=== PATIENT | female | born 1990 | race Caucasian/White ===

== ENCOUNTER 2017-04-11 18:11 | Emergency (ER) | payer MEDICAID, OTHER ==
[~2017-04-11 18:11] MED LIST: FERR200T PO; PREN1CAP PO; TERC.4%V VAGINAL
[2017-04-11 18:26] VITALS: BP 124/77; PULSE 98
[2017-04-11 18:57] LABS: BACTERIA, URINE OCC /hpf; BLOOD, URINE NEG (NEG); COMMENT (UR) CULT NOT INDICATED; CULTURE IF INDICATED CULT NOT INDICATED; GLUCOSE,URINE NEG (NEG); KETONE, URINE NEG (NEG); NITRITE,URINE NEG (NEG); PH, URINE 6.5 (5.0-8.5); SQUAMOUS EPITHELIAL CELL URINE 3 /hpf (0-5); URINE COLOR YELLOW (YELLW/STRAW)
--- NOTE | 2017-04-11 19:08 | PD ---
HPI Chief Complaint back pain Travel History International Travel<30 Days: No Contact w/Intl Traveler<30Days: No History of Present Illness HPI 26 yo @ 35w3dd with DARCY 05-13-2017 by 34 weeks ultrasound. Patient with late care initiated @ 35 weeks. She states she did not know she was until an ER visit for SOB at [facility]. There she had a pos HCG and was told she was , she was taken to L&D. She had some labs drawn and an US done which gave her this DARCY. Records requested. She had a new OB visit 2 days ago with [facility]. labs were obtained and GBS. She also reports smoking this . The FOB committed suicide March 2017 prior to her knowing of the . She Today she c/o low back pain, constant. She has not tried any medication for her back pain. She also has had diarrhea today. Uncertain of UC. No LOF, VB or discharge. Patient later states she had not felt baby move as much this afternoon. History Past Medical History Narrative Medical Asthma Obesity Prior blood transfusion Obstetric History Obstetric History x 2 Past Surgical History Narrative Surgical x 2 Family History Family History: Negative Social History Alcohol Use: No Tobacco Use: Yes Substance Abuse: No Allergies-Medications (Allergen,Severity, Reaction): Coded Allergies: Latex (Verified Allergy, Intermediate, 04/09/17) Home Meds Active Scripts Ferrous Sulfate (Feosol)200 Mg [id number] Mg PO DAILY 60 Days Ref 0 Prov:Marisol Deutsch 04/11/17 Vit W/ Fe Polysacch C (Vitafol Ultra 29-0.6-0.4-200 mg)1 Cap Cap1 Cap PO DAILY 90 Days Prov:Marisol Deutsch 04/09/17 Discontinued Scripts Vit W/ Fe Polysacch C (Vitafol Ultra 29-0.6-0.4-200 mg)1 Cap Cap Sample #3 Prov:Marisol Deutsch 04/09/17 Review of Systems General / Constitutional: No: Fever, Chills Eyes: No: Blurred Vision, Visual changes HENT: No: Headaches, Lightheadedness Cardiovascular: No: Chest Pain or Discomfort, Palpitations Respiratory: No: Cough, Short of Breath Gastrointestinal: Diarrhea, Changes in Bowel Habits, No: Nausea, Vomiting, Abdominal Pain, Constipation, Loss of Appetite Genitourinary: No: Urgency, Frequency, Dysuria, Pelvic Pain, Discharge, Vaginal Bleeding Musculoskeletal: Pain (low back pain), No: Limited ROM, Weakness, Edema Skin: No Rash, No Lesions Neurologic: No: Focal Abnormalities, Coordination Problem Physical Exam Vital Signs Date Time Temp Pulse Resp B/P Pulse Ox O2 Delivery O2 Flow Rate FiO2 04/11/17 18:26 98 124/77 Narrative GENERAL: Well-nourished, well-developed patient. SKIN: Warm and dry. HEAD: Normocephalic and atraumatic. EYES: No scleral icterus. No injection or drainage. ENT: No nasal drainage noted. Mucous membranes pink. Airway patent. NECK: trachea midline. No JVD. CARDIOVASCULAR: Regular rate and rhythm without murmurs, gallops, or rubs. RESPIRATORY: Breath sounds equal bilaterally. No accessory muscle use. ABDOMEN/GI: Abdomen soft, non-tender, no rebound, no guarding Gravid, NT TOCO: no UC FHT's: Baseline: 125 Initally minimal variability and no accelerations. After IVF met criteria for CAT I and reactive intermittently Decels: [-] EXTREMITIES: No cyanosis or edema. BACK: Nontender without obvious deformity. No CVA tenderness. NEUROLOGICAL: Awake and alert. Motor and sensory grossly within normal limits. Normal speech. Data Data Vital Signs Reviewed: Yes Orders Vital Signs (Adult) .ON ADMISSION (04/11/17 18:37) ^ Labor Status (04/11/17 18:37) Urinalysis - C+S If Indicated (04/11/17 18:37) ^ Non Stress Test (04/11/17 18:37) ^ Hydration (04/11/17 18:38) Labs Laboratory Tests Test 04/11/17 18:00 Urine Color YELLOW (YELLW/STRAW) Urine Turbidity HAZY (CLEAR) Urine pH 6.5 (5.0-8.5) Urine Specific [place] 1.018 (1.002-1.035) Urine Protein NEG mg/dL (NEG-TRACE) Urine Glucose (UA) NEG mg/dL (NEG) Urine Ketones NEG mg/dL (NEG) Urine Occult Blood NEG (NEG) Urine Nitrite NEG (NEG) Urine Bilirubin NEG (NEG) Urine Urobilinogen LESS THAN 2.0 MG/DL (LESS THAN 2.0) Urine Leukocyte Esterase TRACE (NEG) Urine RBC LESS THAN 1 /hpf (0-3) Urine WBC 4 /hpf (0-5) Urine Squamous Epithelial 3 /hpf (0-5) Cells Urine Bacteria OCC /hpf (NONE) Microscopic Urinalysis Comment CULT NOT INDICATED MDM Medical Record Reviewed: Yes Interpretation(s) US: [id number] EFW 2535gm 39th% BARBIE 19.9cm Placenta posterior, grade II-III BPP 06/11 "very active fetus" Narrative Course / MDM 35 weeks Late/Limited PNC Heavy smoker Intermittent bleeding this , last one week ago FHT reactive intermittently US 06/11 BPP, normal BARBIE, normal placenta, ++ movement IVF given for hydration Low back pain - given Tylenol No s/s PTL Prior Records from [facility] reviewed, US Preliminary UDS negative Plan D/c home Limited activity until PRESLEY on Sat, pelvic rest Increase oral hydration Repeat NST Saturday Tylenol PRN for back pain [facility] to schedule consultation, BTL (papers signed 2 days ago ) Diagnosis Diagnosis: Primary Impression: related low back pain in third trimester, antepartum Additional Impressions: Late care affecting in third trimester Tobacco smoking affecting in third trimester History of 2 sections 36 weeks gestation of Disposition: 01 DISCHARGE HOME Condition: Good Nusrat Hester MD Apr 11, 2017 19:08
[2017-04-11] MEDS ORDERED: ACETAMINOPHEN 500 MG CPLT PO ONE (19:15)
[2017-04-11] MEDS ORDERED: LACTATED RINGER'S 1000 ML INJ 1,000 ML IV SCH (20:03)
[2017-04-11 21:24] VITALS: BP 94/61; PULSE 83
[2017-04-11 21:24] LABS: AMPHETAMINE, URINE NEG (NEG); BARBITURATES, URINE NEG (NEG); COCAINE, URINE NEG (NEG)
[2017-04-11 21:30] VITALS: PULSE 18; TEMP 98.3
[2017-04-17 08:12] LABS: ECSTASY (MDMA) UR NEG (NEG); HEROIN (6-ACETYLMORPHINE) UR NEG (NEG); OBMETHADONE UR NEG (NEG); PHENCYCLIDINE URINE NEG (NEG)
[2017-04-17 08:13] LABS: BATH SALTS (MDPV) UR NEG (NEG); GABAPENTIN UR NEG (NEG); HYDROMORPHONE U NEG (NEG); K2 SPICE UR NEG (NEG); OXYCODONE (PERCODAN) NEG (NEG)
== END 2017-04-11 22:14 | disposition home or self-care (01) ==
LOC: HOBED 18:11
DX: O26.893 Other specified pregnancy related conditions, third trimester (principal); M54.5 Low back pain; O09.33 Supervision of pregnancy with insufficient antenatal care, third trimester; O99.333 Smoking (tobacco) complicating pregnancy, third trimester; O34.219 Maternal care for unspecified type scar from previous cesarean delivery; O99.213 Obesity complicating pregnancy, third trimester; Z87.09 Personal history of other diseases of the respiratory system; Z3A.35 35 weeks gestation of pregnancy
CPT/HCPCS: 59025; 76805; 76819; 80307; 81001; 96360; 99285; G0481; J7120

== ENCOUNTER 2017-04-12 12:15 | Emergency (ER) | payer MEDICAID, OTHER ==
[~2017-04-12 12:15] MED LIST changes: -TERC.4%V VAGINAL
--- NOTE | 2017-04-12 13:57 | PD ---
HPI Chief Complaint Decreased Movement Date Seen: Apr 12, 2017 Travel History International Travel<30 Days: No Contact w/Intl Traveler<30Days: No History of Present Illness HPI Patient is a 26 year old at 35-4/7 weeks gestation who presents today from [facility] for decreased movement and equivocal NST. Patient was evaluated in the OB ED last night as well for low back pain and had a BPP 8/ 8 with normal BARBIE, normal placenta, and positive movement. She denies any contractions, vaginal discharge, gush or leaking of fluid. She did have some spotting yesterday. She was late to establish care at 35 weeks gestation. History Past Medical History Narrative Medical Asthmalast inhaler use 1 year ago Obesity Obstetric History Obstetric History S/P 2 Past Surgical History Narrative Surgical 2 Family History Family History: Negative Social History Alcohol Use: No Tobacco Use: Yes (2-3 cigarettes/day) Substance Abuse: No Allergies-Medications (Allergen,Severity, Reaction): Coded Allergies: Latex (Verified Allergy, Intermediate, 04/12/17) Home Meds Active Scripts Ferrous Sulfate (Feosol)200 Mg [id number] Mg PO DAILY 60 Days Ref 0 Prov:Marisol Deutsch 04/11/17 Vit W/ Fe Polysacch C (Vitafol Ultra 29-0.6-0.4-200 mg)1 Cap Cap1 Cap PO DAILY 90 Days Prov:Marisol Deutsch 04/09/17 Discontinued Scripts Vit W/ Fe Polysacch C (Vitafol Ultra 29-0.6-0.4-200 mg)1 Cap Cap Sample #3 Prov:Marisol Deutsch 04/09/17 Review of Systems Except as stated in HPI: all other systems reviewed are Neg General / Constitutional: No: Fever, Chills Eyes: No: Visual changes HENT: No: Headaches Cardiovascular: No: Chest Pain or Discomfort Respiratory: No: Short of Breath Gastrointestinal: No: Abdominal Pain Genitourinary: Vaginal Bleeding (spotting), No: Dysuria, Pelvic Pain, Discharge Musculoskeletal: No: Edema Neurologic: No: Headache Psychiatric: No: Substance Abuse Physical Exam Narrative GENERAL: Well-nourished, well-developed patient. SKIN: Warm and dry. HEAD: Normocephalic and atraumatic. EYES: No scleral icterus. No injection or drainage. ENT: No nasal drainage noted. Mucous membranes pink. Airway patent. NECK: Supple, trachea midline. No JVD. CARDIOVASCULAR: Regular rate and rhythm without murmurs, gallops, or rubs. RESPIRATORY: Breath sounds equal bilaterally. No accessory muscle use. ABDOMEN/GI: Abdomen soft, non-tender, bowel sounds present, no rebound, no guarding Gravid to 35 weeks size GENITOURINARY: External Genitalia: intact and normal in appearance Membranes: intact Uterine Contractions: none FHT's: Category: I Baseline: 130 Reactive: + Variability: moderate Decels: none EXTREMITIES: No cyanosis or edema. BACK: Nontender without obvious deformity. No CVA tenderness. NEUROLOGICAL: Awake and alert. Motor and sensory grossly within normal limits. Normal speech. Data Data Vital Signs Reviewed: Yes MDM Medical Record Reviewed: Yes Narrative Course / MDM 24 year old at 35-4/7 weeks gestation. 1. IUP- Category I tracing, reassuring. 2. Decreased movement- Reactive NST today and 8/8 BPP yesterday, reassuring. Will discharge patient to home. Follow-up with [facility]. nigel Liz Diagnosis Diagnosis: Primary Impression: 35 weeks gestation of Additional Impression: Late care affecting in third trimester Disposition: 01 DISCHARGE HOME Condition: Stable Michelle Burch MD R2 Apr 12, 2017 13:57
== END 2017-04-12 14:15 | disposition home or self-care (01) ==
LOC: HOBED 12:15
DX: O36.8130 Decreased fetal movements, third trimester, not applicable or unspecified (principal); O09.33 Supervision of pregnancy with insufficient antenatal care, third trimester; Z3A.35 35 weeks gestation of pregnancy
CPT/HCPCS: 59025

== ENCOUNTER 2017-04-16 10:11 | Emergency (ER) | payer MEDICAID ==
[2017-04-16 10:28] VITALS: BP 112/90; PULSE 115
[2017-04-16 10:30] VITALS: RESP 18; TEMP 97.9
[2017-04-16 10:31] VITALS: BP 127/84; PULSE 111
--- NOTE | 2017-04-16 10:46 | PD ---
HPI Chief Complaint Decreased movement. Date Seen: Apr 16, 2017 (Michelle Burch MD R2) Travel History International Travel<30 Days: No Contact w/Intl Traveler<30Days: No (Michelle Burch MD R2) History of Present Illness HPI Patient is a 26 year old at 36-1/7 weeks gestation who presents today for decreased movement. She states that she is feeling the baby move less than usual today. She was seen today by [facility] where she was found to have a nonreactive NST. She denies any vaginal bleeding or discharge. No gush or leaking of fluid. Positive movement. No contractions. (Michelle Burch MD R2) History Past Medical History Narrative Medical Asthmalast inhaler use 1 year ago Obesity (Michelle Burch MD R2) Obstetric History Obstetric History S/P 2 (Michelle Burch MD R2) Past Surgical History Narrative Surgical 2 (Michelle Burch MD R2) Family History Family History: Negative (Michelle Burch MD R2) Social History Alcohol Use: No Tobacco Use: Yes (2-3 cigarettes/day) Substance Abuse: No (Michelle Burch MD R2) Allergies-Medications (Allergen,Severity, Reaction): Coded Allergies: Latex (Verified Allergy, Intermediate, 04/16/17) Home Meds Active Scripts Ferrous Sulfate (Feosol)200 Mg [id number] Mg PO DAILY 60 Days Ref 0 Prov:Marisol Deutsch 04/11/17 Vit W/ Fe Polysacch C (Vitafol Ultra 29-0.6-0.4-200 mg)1 Cap Cap1 Cap PO DAILY 90 Days Prov:Marisol Deutsch 04/09/17 Discontinued Scripts Vit W/ Fe Polysacch C (Vitafol Ultra 29-0.6-0.4-200 mg)1 Cap Cap Sample #3 Prov:Marisol Deutsch 04/09/17 Review of Systems Except as stated in HPI: all other systems reviewed are Neg General / Constitutional: No: Fever, Chills Eyes: No: Visual changes HENT: No: Headaches Cardiovascular: No: Chest Pain or Discomfort Respiratory: No: Short of Breath Gastrointestinal: No: Abdominal Pain Genitourinary: No: Pelvic Pain, Discharge, Vaginal Bleeding Musculoskeletal: No: Edema Psychiatric: No: Substance Abuse (Michelle Burch MD R2) Physical Exam Narrative GENERAL: Well-nourished, well-developed patient. SKIN: Warm and dry. HEAD: Normocephalic and atraumatic. EYES: No scleral icterus. No injection or drainage. ENT: No nasal drainage noted. Mucous membranes pink. Airway patent. NECK: Supple, trachea midline. No JVD. CARDIOVASCULAR: Regular rate and rhythm without murmurs, gallops, or rubs. RESPIRATORY: Breath sounds equal bilaterally. No accessory muscle use. ABDOMEN/GI: Abdomen soft, non-tender, bowel sounds present, no rebound, no guarding Gravid to 36 weeks size GENITOURINARY: External Genitalia: intact and normal in appearance Presentation: vertex Membranes: intact Uterine Contractions: none FHT's: Category: I Baseline: 150 Reactive: + Variability: moderate Decels: none EXTREMITIES: No cyanosis or edema. BACK: Nontender without obvious deformity. No CVA tenderness. NEUROLOGICAL: Awake and alert. Motor and sensory grossly within normal limits. Normal speech. (Michelle Burch MD R2) Data Data Vital Signs Reviewed: Yes Orders Us Ob Bpp Wo Nst (04/16/17 ) Vital Signs (Adult) .ON ADMISSION (04/16/17 10:29) ^ Labor Status (04/16/17 10:29) ^ Non Stress Test (04/16/17 10:29) ^ Hydration (04/16/17 10:29) (Michelle Burch MD R2) MDM Medical Record Reviewed: Yes Narrative Course / MDM 26 year old at 36-1/7 weeks gestation. 1. IUP- Category I tracing, reassuring. 2. Decreased movement- Nonreactive NST in outpatient office today. Will obtain repeat NST and BPP. 3. Late care. Patient with history of x 2, will need to be scheduled for repeat . Patient also desires BTL and signed consents on 04/09/17. dw Dr. Martinez and Dr. Frida Andersen R1 Addendum: Reactive NST with 06/11 BPP. Will discharge patient to home. Follow up with [facility]. (Michelle Burch MD R2) Diagnosis Diagnosis: Primary Impression: Decreased movement Qualified Code: O36.8130 - Decreased movement, third trimester, not applicable or unspecified fetus Additional Impression: 36 weeks gestation of Disposition: 01 DISCHARGE HOME Condition: Stable Attestation Patient seen at the bedside. D/w patient current status. History of previous C /S x 2, desires repeat and permanent sterilization. R/B/A of repeat section as well as bilateral tubal ligation d/w patient. All questions answered. Patient scheduled for repeat C/S and BTL on 05-10-17. BTL consents obtained on 04-09-17. Keep next scheduled appt. (Dawn Martinez MD) Michelle Burch MD R2 Apr 16, 2017 10:46 Dawn Martinez MD Apr 16, 2017 11:28
== END 2017-04-16 11:27 | disposition home or self-care (01) ==
LOC: HOBED 10:11
DX: O36.8130 Decreased fetal movements, third trimester, not applicable or unspecified (principal); Z3A.36 36 weeks gestation of pregnancy; E66.9 Obesity, unspecified; Z72.0 Tobacco use
CPT/HCPCS: 59025; 76819

== ENCOUNTER 2017-04-22 12:15 | Emergency (ER) | payer MEDICAID ==
[2017-04-22] MEDS ORDERED: PROCHLORPERAZINE INJ 10 MG/2 ML VIAL IM STA (13:00)
--- NOTE | 2017-04-22 13:07 | PD ---
HPI Chief Complaint Headache Date Seen: Apr 22, 2017 Time Seen: 13:01 Travel History International Travel<30 Days: No Contact w/Intl Traveler<30Days: No Known Affected Area: No History of Present Illness HPI 26-year-old at 37 weeks gestation comes in today complaining of several days of headaches. She was worried about preeclampsia that she came in for blood pressure check. She has been [facility] and has had an uncomplicated course. Denies abdominal pain or visual symptoms. Para: 2 : 3 History Past Medical History Medical History: Denies Significant Hx Obstetric History Obstetric History section 2 Past Surgical History Narrative Surgical section Family History Family History: Negative Social History Alcohol Use: No Tobacco Use: No Substance Abuse: No Allergies-Medications (Allergen,Severity, Reaction): Coded Allergies: Latex (Verified Allergy, Intermediate, 04/16/17) Home Meds Active Scripts Ferrous Sulfate (Feosol)200 Mg [id number] Mg PO DAILY 60 Days Ref 0 Prov:Marisol Deutsch 04/11/17 Vit W/ Fe Polysacch C (Vitafol Ultra 29-0.6-0.4-200 mg)1 Cap Cap1 Cap PO DAILY 90 Days Prov:Marisol Deutsch 04/09/17 Review of Systems Except as stated in HPI: all other systems reviewed are Neg Physical Exam 116/72, 122/78 Narrative GENERAL: Well-nourished, well-developed patient. SKIN: Warm and dry. HEAD: Normocephalic and atraumatic. EYES: No scleral icterus. No injection or drainage. ENT: No nasal drainage noted. Mucous membranes pink. Airway patent. NECK: Supple, trachea midline. No JVD. CARDIOVASCULAR: Regular rate and rhythm without murmurs, gallops, or rubs. RESPIRATORY: Breath sounds equal bilaterally. No accessory muscle use. ABDOMEN/GI: Abdomen soft, non-tender, bowel sounds present, no rebound, no guarding Gravid to [37-] weeks size Fundal Height: [-] GENITOURINARY: Deferred External Genitalia: intact and normal in appearance BUS glands: [-] Cervix: [-] Dilatation: [-] Effacement: [-] Station: [-] Presentation: [-] Membranes: [intact or ruptured] Uterine Contractions: [-] FHT's: Category: [-1] Baseline: [150-] Reactive: [-Moderate] Variability: [-Moderate] Decels: [Absent-] EXTREMITIES: No cyanosis or edema. BACK: Nontender without obvious deformity. No CVA tenderness. NEUROLOGICAL: Awake and alert. Motor and sensory grossly within normal limits. Five out of 5 muscle strength in all muscle groups. Normal speech. Data Data Vital Signs Reviewed: Yes Orders Prochlorperazine Inj (Compazine Inj) (04/22/17 13:00) MDM Plan 26-year-old at 37 weeks gestation prior section and she has a day for repeat section next month Patient is normotensive at this time with no peripheral edema Patient is a follow-up visit to her office tomorrow Diagnosis Diagnosis: Primary Impression: Headache Additional Impressions: Previous delivery affecting , antepartum 37 weeks gestation of Disposition: 01 DISCHARGE HOME Lucinda Lilly MD Apr 22, 2017 13:07
== END 2017-04-22 14:19 | disposition home or self-care (01) ==
LOC: HOBED 12:15
DX: O26.893 Other specified pregnancy related conditions, third trimester (principal); R51 Headache; Z3A.37 37 weeks gestation of pregnancy
CPT/HCPCS: 96372; 99284; J0780

== ENCOUNTER 2017-04-26 21:13 | Emergency (ER) | payer MEDICAID ==
--- NOTE | 2017-04-26 22:04 | PD ---
HPI Chief Complaint Decreased movement Date Seen: Apr 26, 2017 Time Seen: 22:01 Travel History International Travel<30 Days: No Contact w/Intl Traveler<30Days: No Known Affected Area: No History of Present Illness HPI 26-year-old female G3 3 P2 who comes in complaining of decreased movement. This has been an ongoing issue through her . Patient states that she's had 2 prior sections and realized that she was late in her gestation and began care with [facility]. Patient denies any issues with her and will be having a repeat section as she has had 2 prior C-sections. Patient's had 2 prior macrosomic infants. Para: 2 : 3 History Past Medical History Medical History: Denies Significant Hx Obstetric History Obstetric History 2 Past Surgical History Narrative Surgical section Family History Family History: Negative Social History Alcohol Use: No Tobacco Use: No Substance Abuse: No Allergies-Medications (Allergen,Severity, Reaction): Coded Allergies: Latex (Verified Allergy, Intermediate, 04/25/17) Home Meds Active Scripts Ferrous Sulfate (Feosol)200 Mg [id number] Mg PO DAILY 60 Days Ref 0 Prov:Marisol Deutsch 04/11/17 Vit W/ Fe Polysacch C (Vitafol Ultra 29-0.6-0.4-200 mg)1 Cap Cap1 Cap PO DAILY 90 Days Prov:Marisol Deutsch 04/09/17 Review of Systems Except as stated in HPI: all other systems reviewed are Neg Physical Exam Narrative GENERAL: Well-nourished, well-developed patient. SKIN: Warm and dry. HEAD: Normocephalic and atraumatic. EYES: No scleral icterus. No injection or drainage. ENT: No nasal drainage noted. Mucous membranes pink. Airway patent. NECK: Supple, trachea midline. No JVD. CARDIOVASCULAR: Regular rate and rhythm without murmurs, gallops, or rubs. RESPIRATORY: Breath sounds equal bilaterally. No accessory muscle use. ABDOMEN/GI: Abdomen soft, non-tender, bowel sounds present, no rebound, no guarding Gravid to [-39] weeks size Fundal Height: [-] GENITOURINARY: External Genitalia: intact and normal in appearance BUS glands: [-Normal] Cervix: [Posterior-] very ballotable with the head floating in the pelvis Dilatation: [-Closed] Effacement: [-Long] Station: [-High] Presentation: [Vertex-] Membranes: [intact ] Uterine Contractions: [Absent-] FHT's: Category: [1-] Baseline: [140-] Reactive: [Moderate-] Variability: [-Moderate] Decels: [-Absent] EXTREMITIES: No cyanosis or edema. BACK: Nontender without obvious deformity. No CVA tenderness. NEUROLOGICAL: Awake and alert. Motor and sensory grossly within normal limits. Five out of 5 muscle strength in all muscle groups. Normal speech. Data Data Vital Signs Reviewed: Yes MDM Plan 26-year-old with some decreased movement. May be from polyhydramnios, 1 hour glucose tolerance was normal Would recommend continue testing with weekly nonstress tests due to the patient' s inability to feel movement Diagnosis Diagnosis: Primary Impression: 37 weeks gestation of Additional Impression: Decreased movement Disposition: 01 DISCHARGE HOME Lucinda Lilly MD Apr 26, 2017 22:04
== END 2017-04-26 23:51 | disposition home or self-care (01) ==
LOC: HOBED 21:13
DX: O36.8130 Decreased fetal movements, third trimester, not applicable or unspecified (principal); Z3A.37 37 weeks gestation of pregnancy
CPT/HCPCS: 99281

== ENCOUNTER 2017-05-06 14:13 | Observation (INO) | payer MEDICAID ==
[2017-05-06] VITALS (7 sets, daily range): BP systolic 126–128; BP diastolic 66–71; PULSE 65–109; RESP 18; TEMP 98.3–98.6
[2017-05-06] MEDS ORDERED: METOCLOPRAMIDE HCL 10 MG/2 ML VIAL IV PUSH ONE (15:00)
[2017-05-06] MEDS ORDERED: LACTATED RINGER'S 1000 ML INJ 1,000 ML IV ONE (15:00)
[2017-05-06] MEDS ORDERED: ONDANSETRON HCL 4 MG/2 ML VIAL IV PUSH ONE (15:00)
[2017-05-06 15:41] LABS: BACTERIA, URINE MOD /hpf; BLOOD, URINE NEG (NEG); CALCIUM OXALATE CRYSTALS,URINE OCC /hpf; COMMENT (UR) CULTURE INDICATED; CULTURE IF INDICATED CULTURE INDICATED; GLUCOSE,URINE NEG (NEG); HYALINE CAST, URINE 1 /lpf (RARE); KETONE, URINE NEG (NEG); MUCUS URINE FEW /lpf (OCC); NITRITE,URINE NEG (NEG); PH, URINE 6.5 (5.0-8.5); SQUAMOUS EPITHELIAL CELL URINE 5 /hpf (0-5); URINE COLOR YELLOW (YELLW/STRAW)
[2017-05-06] MEDS: LACTATED RINGER'S 1000 ML INJ 1,000 ML IV SCH ×2 (16:07→21:51)
--- NOTE | 2017-05-06 16:12 | PD ---
HPI Chief Complaint Nausea & Vomiting Date Seen: May 06, 2017 Time Seen: 15:20 Travel History International Travel<30 Days: No Contact w/Intl Traveler<30Days: No Known Affected Area: No History of Present Illness HPI 26 yo at 39/0 weeks gestation presenting with a 24 hour history of NBNB emesis and nausea. She's thrown up 5-6 times a day for the last 2 days (last night and this morning). Mild abdominal cramping. No fevers/chills. No dysuria. Mild low to mid back pain. Her daughter had been sick with a "stomach bug" 3-4 days ago. Denies CP, SOB, muscle aches, cold/flu symptoms. History Past Medical History Narrative Medical Intermittent asthma Obstetric History Obstetric History Two prior C/S Past Surgical History Narrative Surgical Previous C/S Family History Family History: Negative Social History Alcohol Use: No Tobacco Use: Yes (Quit in march 2017) Substance Abuse: No Allergies-Medications (Allergen,Severity, Reaction): Coded Allergies: Latex (Verified Allergy, Intermediate, 04/30/17) Home Meds Active Scripts Ferrous Sulfate (Feosol)200 Mg [id number] Mg PO DAILY 60 Days Ref 0 Prov:Marisol Deutsch 04/11/17 Vit W/ Fe Polysacch C (Vitafol Ultra 29-0.6-0.4-200 mg)1 Cap Cap1 Cap PO DAILY 90 Days Prov:Marisol Deutsch 04/09/17 Review of Systems Except as stated in HPI: all other systems reviewed are Neg Physical Exam Vital Signs Date Time Temp Pulse Resp B/P Pulse Ox O2 Delivery O2 Flow Rate FiO2 05/06/17 15:20 98 05/06/17 15:15 109 Narrative GENERAL: Well-nourished, well-developed patient. SKIN: Warm and dry. HEAD: Normocephalic and atraumatic. EYES: No scleral icterus. No injection or drainage. ENT: No nasal drainage noted. Mucous membranes pink. Airway patent. NECK: Supple, trachea midline. No JVD. CARDIOVASCULAR: Regular rate and rhythm without murmurs, gallops, or rubs. RESPIRATORY: Breath sounds equal bilaterally. No accessory muscle use. BREASTS: Bilateral exam showed no masses , no retractions, no nipple discharge. ABDOMEN/GI: Abdomen soft, non-tender, bowel sounds present, no rebound, no guarding Gravid to 39 weeks size GENITOURINARY: External Genitalia: intact and normal in appearance BUS glands: normal Cervix: Posterior Dilatation: closed Effacement: thick Station: high Presentation: vertex Membranes: intact Uterine Contractions: none FHT's: Category: 1 Baseline: 135 Reactive: Y Variability: moderate Decels: none EXTREMITIES: No cyanosis or edema. BACK: Nontender without obvious deformity. No CVA tenderness. NEUROLOGICAL: Awake and alert. Motor and sensory grossly within normal limits. Normal speech. Data Data Orders Vital Signs (Adult) .ON ADMISSION (05/06/17 14:41) ^ Labor Status (05/06/17 14:41) ^ Non Stress Test (05/06/17 14:41) ^ Hydration (05/06/17 14:41) Ondansetron Inj (Zofran Inj) (05/06/17 15:00) Metoclopramide Inj (Reglan Inj) (05/06/17 15:00) Lactated Ringer's 1000 Ml Inj (Lr 1000 M (05/06/17 15:00) Urinalysis - C+S If Indicated (05/06/17 15:00) Basic Metabolic Panel (Bmp) (05/06/17 15:00) Urine Culture (05/06/17 14:35) Labs Laboratory Tests Test 05/06/17 14:35 Urine Color YELLOW Urine Turbidity HAZY Urine pH 6.5 Urine Specific [place] 1.017 Urine Protein TRACE Urine Glucose (UA) NEG Urine Ketones NEG Urine Occult Blood NEG Urine Nitrite NEG Urine Bilirubin NEG Urine Urobilinogen LESS THAN 2.0 Urine Leukocyte Esterase LARGE Urine RBC 1 Urine WBC 2 Urine Squamous Epithelial 5 Cells Urine Calcium Oxalate Crystals OCC Urine Bacteria MOD Urine Hyaline Casts 1 Urine Mucus FEW Microscopic Urinalysis Comment CULTURE INDICATED Date/Time Procedure Status Source Growth 05/06/17 14:35 Urine Culture Received Urine Clean Catch Pending MDM Medical Record Reviewed: Yes Narrative Course / MDM 26 yo at 39/0 weeks presenting with 24 h of N/V 1. IUP Category 1 tracing, reassuring - Continuous monitoring 2. Suspected pyelonephritis UA showing many bacteria and large LE, considering pyelonephritis - Place in observation - Rocephin 1 gm IV Q12H - UCx pending - LR @ 100 cc/hr 3. N/V Likely related to UTI/Pyelonephritis versus viral gastroenteritis - Fluids as above - Zofran 4 mg IV Q46 and Reglan 5 mg IV Q6H scheduled - s/p LR bolus x [address] Liz Diagnosis Diagnosis: Primary Impression: UTI (urinary tract infection) during Qualified Code: O23.43 - UTI (urinary tract infection) during , third trimester Additional Impression: Nausea & vomiting Qualified Code: R11.2 - Non-intractable vomiting with nausea, unspecified vomiting type Miguel Bhakta MD R1 May 06, 2017 16:12
[2017-05-06 16:14] LABS: BICARBONATE 21.7 MEQ/L (21.0-32.0)
[2017-05-06] MEDS ORDERED: SODIUM CHLORID 0.9% 500 ML INJ 500 ML IV PRN (16:15)
[2017-05-06 16:17] LABS: POTASSIUM 4.2 MEQ/L (3.5-5.1)
--- NOTE | 2017-05-06 16:21 | HHI.HP ---
History & Physical H&P HPI HPI Chief Complaint Nausea & Vomiting Date Seen: May 06, 2017 Time Seen: 15:20 Travel History International Travel<30 Days: No Contact w/Intl Traveler<30Days: No Known Affected Area: No History of Present Illness HPI 26 yo at 39/0 weeks gestation presenting with a 24 hour history of NBNB emesis and nausea. She's thrown up 5-6 times a day for the last 2 days (last night and this morning). Mild abdominal cramping. No fevers/chills. No dysuria. Mild low to mid back pain. Her daughter had been sick with a "stomach bug" 3-4 days ago. Denies CP, SOB, muscle aches, cold/flu symptoms. History (Limited) History Past Medical History Narrative Medical Intermittent asthma Obstetric History Obstetric History Two prior C/S Past Surgical History Narrative Surgical Previous C/S Family History Family History: Negative Social History Alcohol Use: No Tobacco Use: Yes (Quit in march 2017) Substance Abuse: No Allergies-Medications Allergies-Medications (Allergen,Severity, Reaction): Coded Allergies: Latex (Verified Allergy, Intermediate, 04/30/17) Home Meds Active Scripts Ferrous Sulfate (Feosol)200 Mg [id number] Mg PO DAILY 60 Days Ref 0 Prov:Marisol Deutsch 04/11/17 Vit W/ Fe Polysacch C (Vitafol Ultra 29-0.6-0.4-200 mg)1 Cap Cap1 Cap PO DAILY 90 Days Prov:Marisol Deutsch 04/09/17 ROS Review of Systems Except as stated in HPI: all other systems reviewed are Neg Physical Exam Physical Exam Vital Signs Date Time Temp Pulse Resp B/P Pulse Ox O2 Delivery O2 Flow Rate FiO2 05/06/17 15:20 98 05/06/17 15:15 109 Narrative GENERAL: Well-nourished, well-developed patient. SKIN: Warm and dry. HEAD: Normocephalic and atraumatic. EYES: No scleral icterus. No injection or drainage. ENT: No nasal drainage noted. Mucous membranes pink. Airway patent. NECK: Supple, trachea midline. No JVD. CARDIOVASCULAR: Regular rate and rhythm without murmurs, gallops, or rubs. RESPIRATORY: Breath sounds equal bilaterally. No accessory muscle use. BREASTS: Bilateral exam showed no masses , no retractions, no nipple discharge. ABDOMEN/GI: Abdomen soft, non-tender, bowel sounds present, no rebound, no guarding Gravid to 39 weeks size GENITOURINARY: External Genitalia: intact and normal in appearance BUS glands: normal Cervix: Posterior Dilatation: closed Effacement: thick Station: high Presentation: vertex Membranes: intact Uterine Contractions: none FHT's: Category: 1 Baseline: 135 Reactive: Y Variability: moderate Decels: none EXTREMITIES: No cyanosis or edema. BACK: Nontender without obvious deformity. No CVA tenderness. NEUROLOGICAL: Awake and alert. Motor and sensory grossly within normal limits. Normal speech. Data Data Data Orders Vital Signs (Adult) .ON ADMISSION (05/06/17 14:41) ^ Labor Status (05/06/17 14:41) ^ Non Stress Test (05/06/17 14:41) ^ Hydration (05/06/17 14:41) Ondansetron Inj (Zofran Inj) (05/06/17 15:00) Metoclopramide Inj (Reglan Inj) (05/06/17 15:00) Lactated Ringer's 1000 Ml Inj (Lr 1000 M (05/06/17 15:00) Urinalysis - C+S If Indicated (05/06/17 15:00) Basic Metabolic Panel (Bmp) (05/06/17 15:00) Urine Culture (05/06/17 14:35) Labs Laboratory Tests Test 05/06/17 14:35 Urine Color YELLOW Urine Turbidity HAZY Urine pH 6.5 Urine Specific [place] 1.017 Urine Protein TRACE Urine Glucose (UA) NEG Urine Ketones NEG Urine Occult Blood NEG Urine Nitrite NEG Urine Bilirubin NEG Urine Urobilinogen LESS THAN 2.0 Urine Leukocyte Esterase LARGE Urine RBC 1 Urine WBC 2 Urine Squamous Epithelial 5 Cells Urine Calcium Oxalate Crystals OCC Urine Bacteria MOD Urine Hyaline Casts 1 Urine Mucus FEW Microscopic Urinalysis Comment CULTURE INDICATED Date/Time Procedure Status Source Growth 05/06/17 14:35 Urine Culture Received Urine Clean Catch Pending MDM MDM Medical Record Reviewed: Yes Narrative Course / MDM 26 yo at 39/0 weeks presenting with 24 h of N/V 1. IUP Category 1 tracing, reassuring - Continuous monitoring 2. Suspected pyelonephritis UA showing many bacteria and large LE, considering pyelonephritis - Place in observation - Rocephin 1 gm IV Q12H - UCx pending - LR @ 100 cc/hr 3. N/V Likely related to UTI/Pyelonephritis versus viral gastroenteritis - Fluids as above - Zofran 4 mg IV Q46 and Reglan 5 mg IV Q6H scheduled - s/p LR bolus x [address] Liz Diagnosis Diagnosis: Primary Impression: UTI (urinary tract infection) during Qualified Code: O23.43 - UTI (urinary tract infection) during , third trimester Additional Impression: Nausea & vomiting Qualified Code: R11.2 - Non-intractable vomiting with nausea, unspecified vomiting type Miguel Bhakta MD R1 May 06, 2017 16:21
[2017-05-06] MEDS ORDERED: SODIUM CHLOR 0.9% 1000 ML INJ 1,000 ML IV PRN (16:32)
--- NOTE | 2017-05-06 17:20 | PD ---
History of Present Illness Date Seen: May 06, 2017 History of Present Illness Patient is 26-year-old white female 39 weeks previous scheduled for repeat in 4 days who presents now with increasing nausea and vomiting 1 mild episode of diarrhea. Describes abdominal pain and right-sided back pain. No fever at home positive for nausea and vomiting for the last 4 days, heart rates reactive and there is no regular contractions cervix is closed and long on exam she has some mild right-sided CVA tenderness and the urinalysis showed many bacteria and indicated to culture but nothing else and urinalysis was abnormal except large leukocyte esterase she was given IV and IV Zofran and Reglan, however she continued to feel nauseous. And since she is scheduled for surgery and 4 days felt that more aggressive therapy needed so she was admitted for inpatient observation. She will be given IV Rocephin 1 g twice a day, Zofran and Reglan IV hydration overnight, and if improve possibly discharge tomorrow and then return Saturday for her . If patient spikes a temperature while she's here that she will remain for several more days probably stay until her surgery Jagjit Liz II, MD May 06, 2017 17:19
[2017-05-06] MEDS: cefTRIAXone INJ 1,000 MG in SODIUM CHLORIDE 0.9% INJ 100 ML IV SCH (17:36)
[2017-05-06] MEDS: METOCLOPRAMIDE HCL 10 MG/2 ML VIAL IV PUSH SCH (20:43)
[2017-05-06] MEDS: ONDANSETRON HCL 4 MG/2 ML VIAL IV PUSH SCH (20:43)
[2017-05-07] VITALS (10 sets, daily range): BP systolic 100–129; BP diastolic 61–69; PULSE 69–81; RESP 18–20; TEMP 97.7–98.7
[2017-05-07] MEDS: METOCLOPRAMIDE HCL 10 MG/2 ML VIAL IV PUSH SCH ×4 (02:55→17:44)
[2017-05-07] MEDS: ONDANSETRON HCL 4 MG/2 ML VIAL IV PUSH SCH ×4 (02:56→17:44)
[2017-05-07] MEDS: cefTRIAXone INJ 1,000 MG in SODIUM CHLORIDE 0.9% INJ 100 ML IV SCH ×2 (04:52→16:53)
--- NOTE | 2017-05-07 11:30 | PD.OB.ANTE ---
Subjective Interval History Patient seen and examined this morning. Afebrile overnight. Vitals stable. Pt reports continued vomiting overnight. Hasn't eating anything yet this morning, is going to try some breakfast. Denies any new complaints. Is still having right lower back pain and lower pelvic pain. Denies any dysuria. Denies any headache, changes in vision, leg pain/swelling. Antepartum ROS: Reports: movement normal, Denies: Loss of fluid, Vaginal bleeding, Contractions, Other Objective Vital Signs Vital Signs Date Time Temp Pulse Resp B/P Pulse Ox O2 Delivery O2 Flow Rate FiO2 05/07/17 09:06 97.8 05/07/17 07:40 18 05/07/17 07:38 74 129/69 05/06/17 19:30 98.6 05/06/17 19:30 18 05/06/17 19:30 65 128/66 05/06/17 17:45 98.3 05/06/17 17:36 89 18 126/71 05/06/17 16:05 77 05/06/17 16:00 79 05/06/17 15:20 98 05/06/17 15:15 109 Lab & Micro Results Test 05/06/17 05/06/17 14:35 14:55 Urine Color YELLOW Urine Turbidity HAZY Urine pH 6.5 Urine Specific [place] 1.017 Urine Protein TRACE mg/dL Urine Glucose (UA) NEG mg/dL Urine Ketones NEG mg/dL Urine Occult Blood NEG Urine Nitrite NEG Urine Bilirubin NEG Urine Urobilinogen LESS THAN 2.0 MG/DL Urine Leukocyte Esterase LARGE Urine RBC 1 /hpf Urine WBC 2 /hpf Urine Squamous Epithelial 5 /hpf Cells Urine Calcium Oxalate Crystals OCC /hpf Urine Bacteria MOD /hpf Urine Hyaline Casts 1 /lpf Urine Mucus FEW /lpf Microscopic Urinalysis Comment CULTURE INDICATED Sodium Level 137 MEQ/L Potassium Level 4.2 MEQ/L Chloride Level 107 MEQ/L Carbon Dioxide Level 21.7 MEQ/L Anion Gap 8 MEQ/L Blood Urea Nitrogen 5 MG/DL Creatinine 0.52 MG/DL Estimat Glomerular Filtration 141 ML/MIN Rate Random Glucose 99 MG/DL Calcium Level 8.5 MG/DL Date/Time Procedure Status Source Growth 05/06/17 14:35 Urine Culture - Preliminary Resulted Urine Clean Catch IMMATURE GROWTH - REINCUBATE Physical Exam GENERAL: Well-nourished, well-developed patient. CARDIOVASCULAR: Regular rate and rhythm without murmurs, gallops, or rubs. RESPIRATORY: Breath sounds equal bilaterally. No accessory muscle use. ABDOMEN/GI: Abdomen soft, non-tender. Gravid to 39 weeks BACK: Right CVA tenderness GENITOURINARY: FHT's: Category: 1 Baseline: 130 Reactive: yes Variability: moderate Decels: none EXTREMITIES: No cyanosis or edema, non-tender, without signs of DVT. Assessment and Plan Problem List: (1) 39 weeks gestation of Status: Acute (2) Pyelonephritis affecting in third trimester Status: Acute Assessment and Plan 26 y/o at 39/1 weeks admitted for pyelonephritis. Category 1 FHT AFVSS IUP -Continuous FHT -Scheduled for delivery on 05/10 Pyelonephritis -Urine culture pending -Continue LR @ 100mls/hr -Rocpehin 1g IV q12H -Zofran/Reglan for vomiting. -Fentanyl PRN pain Dispo: Not tolerating PO yet; will await culture results and pt tolerating PO nigel Huang,Hernesto Rincon MD R1 May 07, 2017 11:30
[2017-05-07] MEDS: LACTATED RINGER'S 1000 ML INJ 1,000 ML IV SCH (11:31)
[2017-05-07] MEDS ORDERED: METOCLOPRAMIDE HCL 10 MG/2 ML VIAL IV PUSH PRN (21:00)
[2017-05-07] MEDS ORDERED: ONDANSETRON HCL 4 MG/2 ML VIAL IV PUSH PRN (21:00)
[2017-05-08 01:00] VITALS: RESP 16
[2017-05-08 03:00] VITALS: RESP 18
[2017-05-08 04:18] VITALS: RESP 16
[2017-05-08] MEDS: LACTATED RINGER'S 1000 ML INJ 1,000 ML IV SCH (06:24)
[2017-05-08] MEDS: cefTRIAXone INJ 1,000 MG in SODIUM CHLORIDE 0.9% INJ 100 ML IV SCH (06:25)
[2017-05-08 06:27] VITALS: RESP 18
[2017-05-08 06:31] VITALS: BP 133/76; PULSE 84; TEMP 98.7
[2017-05-08] MEDS ORDERED: NITR100C4 PO (10:23)
[2017-05-08] MEDS ORDERED: ONDA4TAB7 SL (10:23)
--- NOTE | 2017-05-08 10:24 | HHI.DCPOC ---
Discharge Care Plan Diagnosis: (1) Pyelonephritis affecting in third trimester (2) Nausea & vomiting (3) Tobacco smoking affecting in third trimester Report Symptoms to Your Doctor -Temperature above 100.5 degrees -Redness, of incision or excessive or foul smelling drainage -Unusual pain or calf pain -Increased vaginal bleeding -Painful or difficulty urinating -Feelings of extreme sadness or anxiety after 2 weeks Goals to Promote Your Health * To prevent worsening of your condition and complications * To maintain your health at the optimal level Directions to Meet Your Goals Take your medications as prescribed Follow your dietary instruction Follow activity as directed Ensure plenty of rest for recovery Drink fluids for hydration Keep your appointments as scheduled Take your immunizations and boosters as scheduled If your symptoms worsen call your PCP, if no PCP go to Urgent Care Center or Emergency Room Smoking is Dangerous to Your Health. Avoid second hand smoke Call the 24-hour crisis hotline for domestic abuse at Miguel Bhakta MD R1 May 08, 2017 10:24
--- NOTE | 2017-05-08 11:09 | PD.OB.ANTE ---
Subjective Diagnosis: (1) 39 weeks gestation of Diagnosis: Secondary (2) Pyelonephritis affecting in third trimester Diagnosis: Principal Interval History Improve significantly over the last week for hours, denies abdominal pain, nausea/vomiting. Tolerating oral diet without issue. Urinating frequently due to IV fluids, but no pain. Antepartum ROS: Denies: New complaints, Loss of fluid, Vaginal bleeding, movement normal, Contractions (Miguel Bhakta MD R1) Objective Vital Signs Vital Signs Date Time Temp Pulse Resp B/P Pulse Ox O2 Delivery O2 Flow Rate FiO2 05/08/17 06:31 98.7 84 05/08/17 06:31 133/76 05/08/17 06:27 18 05/08/17 04:18 16 05/08/17 03:00 18 05/08/17 01:00 16 05/07/17 23:00 69 100/61 05/07/17 22:59 98.7 05/07/17 22:16 18 05/07/17 19:35 78 118/69 05/07/17 19:34 98.2 18 05/07/17 16:56 97.7 81 20 121/68 05/07/17 12:04 75 20 129/63 Lab & Micro Results Date/Time Procedure Status Source Growth 05/06/17 14:35 Urine Culture - Final Complete Urine Clean Catch 50-100,000 CFU/ML MIXED GRAM POSITIVE... Physical Exam GENERAL: Well-nourished, well-developed patient. CARDIOVASCULAR: Regular rate and rhythm without murmurs, gallops, or rubs. RESPIRATORY: Breath sounds equal bilaterally. No accessory muscle use. ABDOMEN/GI: Abdomen soft, non-tender. Fundus: Non-tender GENITOURINARY: No CVA tenderness External Genitalia: deferred FHT's: Category: 1 Baseline: 120 Reactive: Y Variability: moderate Decels: N EXTREMITIES: No cyanosis or edema, non-tender, without signs of DVT. (Miguel Bhakta MD R1) Assessment and Plan Problem List: (1) 39 weeks gestation of Status: Acute (2) Pyelonephritis affecting in third trimester Status: Acute Assessment and Plan 26 y/o at 39/1 weeks admitted for pyelonephritis. IUP -Category 1 tracing, reassuring -Scheduled for repeat C/S on 05/10 Pyelonephritis -Urine culture pending -S/p Rocephin 1 gm Q12H x2 days -Treat with Macrobid 100 mg PO BID until C/S -Zofran ODT PO Q8HR PRN N/V Dispo: tolerating PO without issue, cleared for D/C home today (Miguel Bhakta MD R1) Collaborating MD Comments Agree with discharge plan, patient will return for her repeat . Continue on antibiotics until . (Lucinda Lilly MD) Miguel Bhakta MD R1 May 08, 2017 11:09 Lucinda Lilly MD May 14, 2017 07:44
== END 2017-05-08 11:29 | disposition home or self-care (01) ==
LOC: HOBED 14:13 → H2EA 16:11
PROVIDERS: ADMIT Obstetrics & Gynecology Maternal & Fetal Medicine; ATTEND Obstetrics & Gynecology Maternal & Fetal Medicine
DX: O23.43 Unspecified infection of urinary tract in pregnancy, third trimester (principal); O23.03 Infections of kidney in pregnancy, third trimester; O26.893 Other specified pregnancy related conditions, third trimester; R11.2 Nausea with vomiting, unspecified; R19.7 Diarrhea, unspecified; M54.5 Low back pain; R10.2 Pelvic and perineal pain; O99.513 Diseases of the respiratory system complicating pregnancy, third trimester; J45.20 Mild intermittent asthma, uncomplicated; Z3A.39 39 weeks gestation of pregnancy
CPT/HCPCS: 59025; 80048; 81001; 87086; 96374; 96375; 99285; G0378; J0696; J2405; J2765; J3010; J7120

== ENCOUNTER 2017-05-10 07:59 | Inpatient (IN) | payer MEDICAID ==
[2017-05-10] VITALS (19 sets, daily range): BP systolic 106–130; BP diastolic 55–86; PULSE 78–177; RESP 14–20; TEMP 97.9–98; O2SAT 96–98
[~2017-05-10] VITALS: Ht 162.6 cm; Wt 89.8 kg
[~2017-05-10 07:59] MED LIST changes: +NITR100C4 PO; +ONDA4TAB7 SL
[2017-05-10] MEDS ORDERED: LACTATED RINGER'S 1000 ML INJ 1,000 ML IV ONE (10:15)
[2017-05-10 10:34] LABS: AUTOMATED NEUTROPHIL # 6.7 TH/MM3 (1.8-7.7); BASOPHIL % 0.1 % (0.0-2.0); EOSINOPHIL % 0.3 % (0.0-4.0); HEMATOCRIT 30.7 % (35.0-46.0); HEMO FLAGS DIFF FINAL; LYMPH % 19.9 % (9.0-44.0); LYMPHOCYTE # 1.8 TH/MM3 (1.0-4.8); MEAN CELL VOLUME 83.8 FL (80.0-100.0); MEAN CORPUSCULAR HEMOGLOBIN 28.4 PG (27.0-34.0); MEAN CORPUSCULAR HGB CONC 33.8 % (32.0-36.0); MONO % 4.2 % (0.0-8.0); NEUT % 75.5 % (16.0-70.0); PLATELET COUNT 198 TH/MM3 (150-450); RED BLOOD COUNT 3.67 MIL/MM3 (4.00-5.30); RED CELL DISTRIBUTION WIDTH 16.2 % (11.6-17.2); WHITE BLOOD COUNT 8.9 TH/MM3 (4.0-11.0)
[2017-05-10 10:45] LABS: BACTERIA, URINE MOD /hpf; BLOOD, URINE NEG (NEG); COMMENT (UR) CULTURE INDICATED; CULTURE IF INDICATED CULTURE INDICATED; GLUCOSE,URINE NEG (NEG); KETONE, URINE NEG (NEG); MUCUS URINE FEW /lpf (OCC); NITRITE,URINE NEG (NEG); SQUAMOUS EPITHELIAL CELL URINE 33 /hpf (0-5); URINE COLOR YELLOW (YELLW/STRAW)
--- NOTE | 2017-05-10 10:48 | HHI.HP ---
History & Physical H&P History & Physical H&P HPI HPI Chief Complaint Scheduled repeat C/S Date: 05/10/2017 Time: 10:35 Travel History International Travel<30 Days: No Contact w/Intl Traveler<30Days: No Known Affected Area: No History of Present Illness HPI 26 yo at 39/4 weeks presents for scheduled C/S followed by tubal ligation. Pt has no complaints, no pain, and no leakage of fluid. History (Limited) History Past Medical History Narrative Medical Intermittent asthma Obstetric History Obstetric History Two prior C/S Past Surgical History Narrative Surgical Previous C/S Family History Family History: Negative Social History Alcohol Use: No Tobacco Use: Yes (Quit in march 2017) Substance Abuse: No Allergies-Medications Allergies-Medications (Allergen,Severity, Reaction): Coded Allergies: Latex (Verified Allergy, Intermediate, 04/30/17) Home Meds Active Scripts Ferrous Sulfate (Feosol)200 Mg [id number] Mg PO DAILY 60 Days Ref 0 Prov:Marisol Deutsch 04/11/17 Vit W/ Fe Polysacch C (Vitafol Ultra 29-0.6-0.4-200 mg)1 Cap Cap1 Cap PO DAILY 90 Days Prov:Marisol Deutsch 04/09/17 ROS Review of Systems Except as stated in HPI: all other systems reviewed are Neg Physical Exam Physical Exam Vital Signs Date Time Temp Pulse Resp B/P Pulse Ox O2 Delivery O2 Flow Rate FiO2 05/10/17 10:25 93 18 05/10/17 10:20 121/86 Laboratory Tests Test 05/10/17 10:05 White Blood Count 8.9 TH/MM3 Red Blood Count 3.67 MIL/MM3 Hemoglobin 10.4 GM/DL Hematocrit 30.7 % Mean Corpuscular Volume 83.8 FL Mean Corpuscular Hemoglobin 28.4 PG Mean Corpuscular Hemoglobin 33.8 % Concent Red Cell Distribution Width 16.2 % Platelet Count 198 TH/MM3 Mean Platelet Volume 7.3 FL Neutrophils (%) (Auto) 75.5 % Lymphocytes (%) (Auto) 19.9 % Monocytes (%) (Auto) 4.2 % Eosinophils (%) (Auto) 0.3 % Basophils (%) (Auto) 0.1 % Neutrophils # (Auto) 6.7 TH/MM3 Lymphocytes # (Auto) 1.8 TH/MM3 Monocytes # (Auto) 0.4 TH/MM3 Eosinophils # (Auto) 0.0 TH/MM3 Basophils # (Auto) 0.0 TH/MM3 CBC Comment DIFF FINAL Differential Comment Current Medications Medications (Trade) Dose Ordered Sig/Nik Route PRN Reason Start Time Stop Time Status Last Admin Dose Admin Lactated Ringer's 1,000 ml @ 2,000 mls/hr Q30M ONCE IV 05/10/17 10:15 05/10/17 10:44 UNV Lactated Ringer's 1,000 ml @ 150 mls/hr Q6H40M IV 05/10/17 10:45 UNV Cefazolin Sodium/ Dextrose (Ancef 2 Gm Premix) 50 ml @ 100 mls/hr [employer] IV 05/10/17 11:15 05/14/17 11:14 UNV Citric Acid/ Sodium Citrate (Bicitra Liq) 30 ml [employer] PO 05/10/17 11:45 05/14/17 11:44 UNV Narrative GENERAL: Well-nourished, well-developed patient. SKIN: Warm and dry. HEAD: Normocephalic and atraumatic. EYES: No scleral icterus. No injection or drainage. ENT: No nasal drainage noted. Mucous membranes pink. Airway patent. NECK: Supple, trachea midline. No JVD. CARDIOVASCULAR: Regular rate and rhythm without murmurs, gallops, or rubs. RESPIRATORY: Breath sounds equal bilaterally. No accessory muscle use. BREASTS: Bilateral exam showed no masses , no retractions, no nipple discharge. ABDOMEN/GI: Abdomen soft, non-tender, bowel sounds present, no rebound, no guarding Gravid to 39 weeks size GENITOURINARY: deferred FHT's: Category: 1 Baseline: 150 Reactive: Y Variability: moderate Decels: none EXTREMITIES: No cyanosis or edema. BACK: Nontender without obvious deformity. No CVA tenderness. NEUROLOGICAL: Awake and alert. Motor and sensory grossly within normal limits. Normal speech. MDM MDM Medical Record Reviewed: Yes Narrative Course / MDM 26 yo at 39/4 weeks presenting for repeat C/S and tubal ligation 1. IUP Category 1 tracing, reassuring - Continuous monitoring 2. Repeat C/S - Routine pre-op care dw Dr. Parnell (Ezio Perry MD R1) H&P Patient was seen and evaluated by me. I personally counseled and consented patient for C/S and BTL. I discussed risks of C/S at length, including but not limited to pain, infection, bleeding, injury to other organs (bladder, bowel, nerves, vessels) or baby, hysterectomy, transfusion, need for repeat operation, wound infection or breakdown, and other possible complications. We also discussed her desire for permanent surgical sterilization. I discussed that this is permanent and irreversible and would not be able to be undone if she changed her mind about future childbearing. She is certain she desires sterilization and does not desire biological children, even if she has a new partner. We discussed alternatives at length and risks of failure of 1%, risks of ectopic if failure occurs. All of her questions were answered and consent signed. Attempted to obtain op report from [facility] but unsuccessful. (Veronica Parnell MD) Ezio Perry MD R1 May 10, 2017 10:47 Veronica Parnell MD May 10, 2017 15:49
[2017-05-10] MEDS ORDERED: ceFAZolin 2 GM PREMIX 50 ML IV SCH (11:15)
[2017-05-10] MEDS ORDERED: OXYTOCIN 10 UNIT/ML AMP ONE (11:29)
[2017-05-10] MEDS ORDERED: CITRIC ACID-SODIUM CITRATE LIQ 30 ML UDC PO SCH (11:45)
[2017-05-10] MEDS ORDERED: LACTATED RINGER'S 1000 ML INJ 1,000 ML IV SCH ×2 (12:00→18:30)
[2017-05-10] MEDS ORDERED: MORPHINE SULFATE PF 5 MG/10 ML VIAL ONE (13:12)
[2017-05-10] MEDS ORDERED: ONDANSETRON HCL 4 MG/2 ML VIAL ONE (13:12)
[2017-05-10] MEDS ORDERED: *Lactated Ringer's INJ 1,000 ML IV ONE (13:26)
[2017-05-10] MEDS ORDERED: SIMETHICONE 80 MG CHEWABLE TAB PO PRN (13:45)
[2017-05-10] MEDS ORDERED: ONDANSETRON HCL 4 MG/2 ML VIAL IV PUSH PRN (13:45)
[2017-05-10] MEDS ORDERED: SODIUM CHLORIDE 0.9% FLUSH 10 ML FLUSH IV FLUSH PRN (13:45)
[2017-05-10] MEDS ORDERED: ZOLPIDEM TARTRATE 5 MG TAB PO PRN (13:45)
[2017-05-10] MEDS ORDERED: OXYTOCIN 30 UNITS-500ML PREMIX 500 ML IV ONE (14:30)
--- NOTE | 2017-05-10 15:26 | HHI.PR ---
Addendum to Inpatient Note Addendum Reason: Additional Documentation Additional Information Notified by RN of possible drainage from incision. Patient POD 0 s/p repeat C/S , history of significant blood loss during prior C/S. Objective GEN: WDWN, resting comfortably in bed ABD: C/S incision c/d/i with no significant drainage. : Light vaginal bleeding A/P 26 yo at POD 0 s/p repeat C/S with concern for mild-moderate bleeding and wound drainage - Methergen 0.2 mg PO Q6H x4 doses - Dress wound - Monitor clinically (Miguel Bhakta MD R1) Additional Information Came to assess patient with resident, no evidence of heavy vaginal bleeding but will start methergine 0.2mg q6h x24h due to patient h/o transfusion. no active drainage from incision, will place dressing and monitor (Veronica Parnell MD) Miguel Bhakta MD R1 May 10, 2017 15:26 Veronica Parnell MD May 10, 2017 15:50
[2017-05-10] MEDS: NITROFURANTOIN MONOHYD MACROCR 100 MG CAP PO SCH (17:24)
[2017-05-10] MEDS: METHYLERGONOVINE MALEATE 0.2 MG TAB PO SCH ×2 (17:24→22:58)
[2017-05-10] MEDS ORDERED: MISOPROSTOL 200 MCG TAB ONE (20:24)
[2017-05-10] MEDS ORDERED: SODIUM CHLORIDE 0.9% FLUSH 10 ML FLUSH IV FLUSH SCH (21:00)
[2017-05-10] MEDS ORDERED: OXYTOCIN 30 UNITS-500ML PREMIX 500 ML IV PRN (23:45)
[2017-05-11] MEDS: DOCUSATE SODIUM 50 MG/SENNA 8.6 MG TAB PO PRN ×2 (03:31→15:28)
[2017-05-11] MEDS: oxyCODONE/ACETAMINOPHEN 5 MG/325 MG TAB PO PRN ×4 (03:31→19:58)
[2017-05-11 06:31] LABS: AUTOMATED NEUTROPHIL # 8.3 TH/MM3 (1.8-7.7); BASOPHIL % 0.1 % (0.0-2.0); EOSINOPHIL % 0.3 % (0.0-4.0); HEMATOCRIT 28.9 % (35.0-46.0); HEMO FLAGS DIFF FINAL; LYMPH % 16.8 % (9.0-44.0); LYMPHOCYTE # 1.8 TH/MM3 (1.0-4.8); MEAN CELL VOLUME 86.4 FL (80.0-100.0); MEAN CORPUSCULAR HEMOGLOBIN 28.1 PG (27.0-34.0); MEAN CORPUSCULAR HGB CONC 32.5 % (32.0-36.0); MONO % 6.1 % (0.0-8.0); NEUT % 76.7 % (16.0-70.0); PLATELET COUNT 164 TH/MM3 (150-450); RED BLOOD COUNT 3.35 MIL/MM3 (4.00-5.30); RED CELL DISTRIBUTION WIDTH 16.5 % (11.6-17.2); WHITE BLOOD COUNT 10.8 TH/MM3 (4.0-11.0)
[2017-05-11] MEDS: METHYLERGONOVINE MALEATE 0.2 MG TAB PO SCH ×2 (06:46→10:49)
[2017-05-11] MEDS: NITROFURANTOIN MONOHYD MACROCR 100 MG CAP PO SCH (08:00)
[2017-05-11] MEDS: IBUPROFEN 600 MG TAB PO PRN ×3 (08:01→19:58)
--- NOTE | 2017-05-11 10:29 | HHI.OB ---
Subjective Post Operative Day: 1 Remarks Pt seen and examined this morning. Postoperative day # 1 AFVSS overnight. Incision nondraining, covered by sterile bandage. Decreased lochia. Denies dysuria. No breast tenderness. She is feeding the baby via breast and bottle. Appetite good. No nausea or vomiting. Patient endorses no bowel movement, but does have positive bowel sounds. Ambulating well. Denies calf pain or shortness of breath. Otherwise, she is doing well this morning and has no other concerns. Overnight patient continued vaginal bleeding. OB team evaluated patient and place Cytotec to assist with bleeding control. Objective Vitals/I&O Vital Signs Date Time Temp Pulse Resp B/P Pulse Ox O2 Delivery O2 Flow Rate FiO2 05/10/17 14:55 129/71 05/10/17 14:55 98.0 81 18 05/10/17 14:15 97.9 116/58 05/10/17 14:13 89 20 96 05/10/17 14:00 130/63 05/10/17 13:57 85 18 96 05/10/17 13:45 94 20 98 05/10/17 13:45 127/60 05/10/17 13:30 15 97 05/10/17 13:29 84 116/59 05/10/17 13:14 98.0 84 14 98 05/10/17 13:13 115/55 05/10/17 11:10 94 05/10/17 11:00 92 106/73 05/10/17 10:55 85 05/10/17 10:50 88 05/10/17 10:45 78 115/66 05/10/17 10:45 89 05/10/17 10:35 89 05/10/17 10:30 177 05/10/17 10:30 97.9 05/10/17 10:30 97 124/85 05/10/17 10:25 93 18 Result Diagram: 05/11/17 0543 Objective Remarks GENERAL: Well-nourished, well-developed patient. CARDIOVASCULAR: Regular rate and rhythm without murmurs, gallops, or rubs. RESPIRATORY: Breath sounds equal bilaterally. No accessory muscle use. ABDOMEN/GI: Abdomen soft, non-tender, bowel sounds present. Incision: Clean, dry and intact. Fundus: Firm, non-tender at umbilicus. GENITOURINARY: Light to moderate bleeding. EXTREMITIES: No cyanosis or edema, non-tender, without signs of DVT. Medications and IVs Current Medications Medications (Trade) Dose Ordered Sig/Nik Route Start Time Stop Time Status Last Admin Nitrofurantoin Macrocrystals 100 mg 100 mg BIDPC PO 05/10/17 18:00 05/11/17 08:00 (Lr 1000 ml Inj) 1,000 ml @ 100 mls/hr Q10H IV 05/10/17 18:30 05/11/17 14:29 (NS Flush) 2 ml BID IV FLUSH 05/10/17 21:00 (NS Flush) 2 ml UNSCH PRN IV FLUSH 05/10/17 13:45 (Mylicon Chew) 80 mg QID PRN PO 05/10/17 13:45 (Motrin) 600 mg Q6H PRN PO 05/10/17 13:45 05/11/17 08:01 (Percocet 5-325 Mg) 1 tab Q4H PRN PO 05/10/17 13:45 05/11/17 08:00 (Percocet 5-325 Mg) 2 tab Q4H PRN PO 05/10/17 13:45 (Sonya-Colace) 2 tab Q12H PRN PO 05/10/17 13:45 05/11/17 03:31 (Ambien) 5 mg HS PRN PO 05/10/17 13:45 (M-M-R Ii Inj) 0.5 ml ONCE ONCE SQ 05/11/17 16:00 05/11/17 16:01 (Boostrix Inj) 0.5 ml ONCE ONCE IM 05/11/17 16:00 05/11/17 16:01 05/11/17 08:02 (Zofran Inj) 4 mg Q6H PRN IV PUSH 05/10/17 13:45 (Methergine) 0.2 mg Q6H PO 05/10/17 17:00 05/11/17 11:01 05/11/17 06:46 Assessment/Plan Problem List: (1) Status post section Assessment and Plan 26y/o female who is postop day # 1 s/p repeat . -Continue routine care. Cytotec administered to control uterine bleeding overnight Repeat H/H 9.4/28.9 -Percocet and Motrin PRN pain. -Encouraged OOB. Advised pelvic rest for 6 wks. Will need follow-up appointment in 1 week for incision check. -Re: ctrl, she would like discussed her options with her PICKING SUPERVISOR at follow- up appointment. -Anticipate discharge in 1-2 days. nigel Parnell MD Discharge Planning 1-2 days pending clinical course Jorge A Whyte MD R1 May 11, 2017 10:29
[2017-05-11] MEDS ORDERED: DIPHTH/TETANUS/ACEL PERTUSSIS (BOOSTER) 0.5 ML VIAL/PFS IM ONE (16:00)
[2017-05-11] MEDS ORDERED: MEASLES, MUMPS, RUBELLA VACCINE 0.5 ML VIAL SQ ONE (16:00)
[2017-05-11 19:50] VITALS: BP 99/65; PULSE 74; RESP 18; TEMP 98.3
--- NOTE | 2017-05-11 22:10 | MP ---
cc: TASHIA PARNELL MD Corrected Copy: 05/20/17 DATE OF SURGERY 05/10/17 PREOPERATIVE DIAGNOSIS 1. Intrauterine at 39 weeks and 4 days 2. Prior caesarean delivery times two 3. Obesity and delayed care 4. Desires permanent surgical sterilization. 5. History of anemia. POSTOPERATIVE DIAGNOSIS 1. Intrauterine at 39 weeks and 4 days 2. Prior caesarean delivery times two 3. Obesity and delayed care 4. Desires permanent surgical sterilization. 5. History of anemia. SURGEON Josselin Parnell MD HONING JOB SETTER Dr. Catarina Blackwell TRishabh Child PROCEDURE 1. Repeat low transverse caesarean section, biliary closure, Pfannenstiel incision 2. Bilateral tubal ligation via modified Franki INDICATIONS The patient is a 26 year old 2, para 2 who presented at term for repeat caesarean delivery with tubal ligation. FINDINGS The patient had normal uterus, fallopian tubes and ovaries. In addition, it was a viable male infant in cephalic presentation with Apgars 9 and 9, weighing 7 pounds 11 ounces. CONSULTATIONS None. ESTIMATED BLOOD LOSS 600 mL URINE OUTPUT 100 mL clear urine at the end of the procedure IV FLUIDS 1500 mL PROCEDURE IN DETAIL After obtaining informed consent with risks, benefits and alternatives discussed at length including but not limited to pain, infection, bleeding that might require a hysterectomy or blood transfusion, injury to other organs like the bladder, bowel, nerves and vessels, injury to the baby, need for repeat operation, possibility of a wound infection or breakdown or intrauterine/intraabdominal infection as well as other complications of a caesarean. In addition, we discussed bilateral tubal ligation at length. The patient was counseled that this a permanent procedure that would not be able to be reversed even if she changed her mind and decided for more biological children in the future or had a new partner who wanted children. She stated that she does not desire anymore biological children, that three children is enough and she is certain that she wants the procedure. Her tubal papers are mature. We discussed potential complications from the tubal including but not limited to failure of approximately 1% with the risk of ectopic and need for additional procedures. In addition, we discussed alternatives including but not limited to the salvage determiner reversal, methods like Mirena and Paragard as well as shorter term methods. The patient was certain she desired to proceed. After consents were signed, the patient was taken to the operating room with IV fluids running. In the operating room, reassuring heart tones were confirmed and the patient underwent spinal anesthesia without complication. A Nichols catheter was placed and the patient was placed in the dorsal supine position with a leftward tilt. After again confirming adequate heart tones, the patient was prepped and draped in normal sterile fashion. After confirming timeout procedure and confirm adequate anesthesia, a Pfannenstiel skin incision was made with the scalpel and carried down to the level of fascia. The fascia was nicked in the midline. The scalpel and fascial incision extended laterally with the curved Cormier scissors. Jayleen clamps were applied to the superior aspect of the fascial incision. It was dissected off the underlying rectus muscles bluntly with the Cormier scissors. A vessel was disrupted and was sutured to ensure excellent hemostasis of the rectus muscles. The Jayleen clamps were applied to the inferior aspect of the fascial incision. It was dissected off in a similar fashion. The rectus muscles were in the midline and the peritoneum entered bluntly. The peritoneum incision was extended bluntly. A bladder blade was inserted and the vesicouterine peritoneum identified and entered sharply with the Metzenbaum scissors. The incision was extended laterally and the bladder flap created digitally. Lower uterine segment was thinned out with the scalpel and the hysterotomy was extended bluntly. The vertex was elevated to the level of the hysterotomy and the head delivered atraumatically. The remainder of the was delivery atraumatically and the nose and mouth were suctioned with the bulb suction. We awaited the appropriate time period for delayed cord clamping. The cord was then doubly clamped and cut and the vigorous passed off to the pediatric team. Cord blood was obtained for the nursery and the placenta was removed manually. Uterus was exteriorized and cleared of all clots and debris. A #1 Chromic was used in a running lock fashion to repair the hysterotomy. A second layer of the same suture was used in imbricating fashion after which excellent hemostasis was noted. Attention was then turned to the tubal ligation portion of the procedure. Once again, the patient confirmed that she desired permanent surgical sterilization and no longer desired any further biological children. The right fallopian tube was grasped with a Zeke clamp and approximately a 3 cm segment of fallopian tube was suture ligated with 0 plain gut. A second suture was placed inferior to the first to ensure adequate hemostasis and approximately 2 cm segment of fallopian tube was transected with the Metzenbaum sutures. Both ostia were appreciated and noted to be hemostatic. Attention was turned to the left fallopian tube which in a similar fashion was grasped with the Zeke clamps and approximately a 3 cm segment of fallopian tube doubly suture ligated. Again, the Metzenbaum scissors were used to amputate approximately 2 cm segment of fallopian tube and excellent hemostasis was noted at both ostia. The uterus was very gently returned to the patient's abdomen and the hysterotomy was reinspected and noted to be hemostatic. Both tubal sites were examined and noted to be absolutely hemostatic. The peritoneum was reapproximated with 2-0 Vicryl in a running fashion. The rectus muscles were reexamined and the right rectus muscle was absolutely hemostatic which had previously had a suture placed. The left rectus muscle had a small area of bleeding and was also suture ligated. The rectus muscles were reexamined and noted to be absolutely hemostatic. The fascial was reapproximated with #1 Vicryl in a running fashion. The fascia was noted to be without defect and both apices were noted to be closed well and incorporated in the suture. The subcutaneous tissue was irrigated with warm normal saline and noted to be hemostatic. The skin edges were reapproximated with 3-0 Monocryl in a running fashion. Excellent hemostasis and were noted. Dermabond was placed to the edges of the incision. All sponge, lap and needle counts were correct times two. I performed the entire procedure myself. MD ARTURO Lynn/ /5:51 PM /9:49 AM
[2017-05-12] MEDS: oxyCODONE/ACETAMINOPHEN 5 MG/325 MG TAB PO PRN ×4 (00:28→20:47)
[2017-05-12] MEDS: IBUPROFEN 600 MG TAB PO PRN ×3 (05:51→17:07)
[2017-05-12 08:30] VITALS: BP 122/71; PULSE 76; RESP 18; TEMP 98.2
--- NOTE | 2017-05-12 10:42 | HHI.OB ---
Subjective Post Operative Day: 2 Remarks Pt seen and examined this morning. Postoperative day # 2 AFVSS overnight. Incision nondraining, CDI. Decreased lochia. Denies dysuria. No breast tenderness. She is feeding the baby via breast and bottle. Appetite good. No nausea or vomiting. Patient states she has not yet had a bowel movement and does endorse constipation. She states that normally she only has a bowel movement once a week.Ambulating well. Denies calf pain or shortness of breath. Otherwise, she is doing well this morning and has no other concerns. Objective Vitals/I&O Vital Signs Date Time Temp Pulse Resp B/P Pulse Ox O2 Delivery O2 Flow Rate FiO2 05/12/17 08:30 98.2 76 18 122/71 05/11/17 19:50 98.3 74 18 99/65 Result Diagram: 05/11/17 0543 Objective Remarks GENERAL: Well-nourished, well-developed patient. CARDIOVASCULAR: Regular rate and rhythm without murmurs, gallops, or rubs. RESPIRATORY: Breath sounds equal bilaterally. No accessory muscle use. ABDOMEN/GI: Abdomen soft, bowel sounds present. Mild tenderness to palpation in the R lower quadrant. Incision: Clean, dry and intact. Fundus: Firm, non-tender at umbilicus. GENITOURINARY: Light to moderate bleeding. EXTREMITIES: No cyanosis or edema, non-tender, without signs of DVT. Medications and IVs Current Medications Medications (Trade) Dose Ordered Sig/Nik Route Start Time Stop Time Status Last Admin (Macrobid) 100 mg BIDPC PO 05/10/17 18:00 05/11/17 08:00 (NS Flush) 2 ml BID IV FLUSH 05/10/17 21:00 (NS Flush) 2 ml UNSCH PRN IV FLUSH 05/10/17 13:45 (Mylicon Chew) 80 mg QID PRN PO 05/10/17 13:45 05/11/17 15:28 (Motrin) 600 mg Q6H PRN PO 05/10/17 13:45 05/12/17 05:51 (Percocet 5-325 Mg) 1 tab Q4H PRN PO 05/10/17 13:45 05/11/17 19:58 (Percocet 5-325 Mg) 2 tab Q4H PRN PO 05/10/17 13:45 05/12/17 05:51 (Sonya-Colace) 2 tab Q12H PRN PO 05/10/17 13:45 05/11/17 15:28 (Ambien) 5 mg HS PRN PO 05/10/17 13:45 (Zofran Inj) 4 mg Q6H PRN IV PUSH 05/10/17 13:45 Assessment/Plan Problem List: (1) Status post section Assessment and Plan 26y/o female who is postop day # 2 s/p repeat . -Continue routine care. Cytotec administered to control uterine bleeding overnight on 05/11 Repeat H/H 9.4/28.9 Milk of magnesia ordered for constipation -Percocet and Motrin PRN pain. -Encouraged OOB. Advised pelvic rest for 6 wks. Will need follow-up appointment in 1 week for incision check. -Re: ctrl, she would like discussed her options with her MAINFRAME DEVELOPER at follow- up appointment. -Anticipate discharge tomorrow, 05/12 nigel Crawford MD Discharge Planning Likely tomorrow, 05/12 Jorge A Whyte MD R1 May 12, 2017 10:42
[2017-05-12] MEDS: NITROFURANTOIN MONOHYD MACROCR 100 MG CAP PO SCH ×2 (11:05→17:07)
[2017-05-12] MEDS: MAGNESIUM HYDROXIDE SUSP 30 ML CUP PO SCH (11:06)
[2017-05-12 20:00] VITALS: BP 102/57; PULSE 71; RESP 18; TEMP 97.4
[2017-05-13] MEDS: oxyCODONE/ACETAMINOPHEN 5 MG/325 MG TAB PO PRN ×3 (00:18→13:06)
[2017-05-13] MEDS: DOCUSATE SODIUM 50 MG/SENNA 8.6 MG TAB PO PRN (00:18)
[2017-05-13] MEDS: IBUPROFEN 600 MG TAB PO PRN ×2 (00:19→13:06)
[2017-05-13] MEDS ORDERED: IBUP-232 PO (06:35)
[2017-05-13] MEDS ORDERED: OXYC1TAB63 PO (06:35)
--- NOTE | 2017-05-13 06:35 | HHI.DCPOC ---
Discharge Care Plan Diagnosis: (1) delivery, delivered, current hospitalization Report Symptoms to Your Doctor -Temperature above 100.5 degrees -Redness, of incision or excessive or foul smelling drainage -Unusual pain or calf pain -Increased vaginal bleeding -Painful or difficulty urinating -Feelings of extreme sadness or anxiety after 2 weeks Goals to Promote Your Health * To prevent worsening of your condition and complications * To maintain your health at the optimal level Directions to Meet Your Goals Take your medications as prescribed Follow your dietary instruction Follow activity as directed Ensure plenty of rest for recovery Drink fluids for hydration Keep your appointments as scheduled Take your immunizations and boosters as scheduled If your symptoms worsen call your PCP, if no PCP go to Urgent Care Center or Emergency Room Smoking is Dangerous to Your Health. Avoid second hand smoke Call the 24-hour crisis hotline for domestic abuse at Miguel Bhakta MD R1 May 13, 2017 06:35
[2017-05-13 08:05] VITALS: BP 104/68; PULSE 68; RESP 18; TEMP 97.6
[2017-05-13] MEDS: NITROFURANTOIN MONOHYD MACROCR 100 MG CAP PO SCH (08:54)
[2017-05-13] MEDS: MAGNESIUM HYDROXIDE SUSP 30 ML CUP PO SCH (08:54)
--- NOTE | 2017-05-13 09:00 | HHI.OB ---
Subjective Post Operative Day: 3 Remarks 26 year old female s/p repeat C/S at 39/4 wks gestation, POD 3. AFVSS. Patient reports she is feeling well. Bleeding is decreasing and pain is well- controlled. She is formula feeding and bonding well with baby. Ambulating without difficulties. She is tolerating a diet without nausea or vomiting. She has had a bowel movement. She has passed gas. Denies chest pain, dysuria, shortness of breath, or calf pain. Objective Vitals/I&O Vital Signs Date Time Temp Pulse Resp B/P Pulse Ox O2 Delivery O2 Flow Rate FiO2 05/12/17 20:00 97.4 71 18 102/57 Result Diagram: 05/11/17 0543 Objective Remarks GENERAL: Well-nourished, well-developed patient. CARDIOVASCULAR: Regular rate and rhythm without murmurs, gallops, or rubs. RESPIRATORY: Breath sounds equal bilaterally. No accessory muscle use. ABDOMEN/GI: Abdomen soft, bowel sounds present. Mild tenderness to palpation in the R lower quadrant. Incision: Clean, dry and intact. Fundus: Firm, non-tender at umbilicus. GENITOURINARY: Light to moderate bleeding. EXTREMITIES: No cyanosis or edema, non-tender, without signs of DVT. Medications and IVs Current Medications Medications (Trade) Dose Ordered Sig/Nik Route Start Time Stop Time Status Last Admin (Macrobid) 100 mg BIDPC PO 05/10/17 18:00 05/13/17 08:54 (NS Flush) 2 ml BID IV FLUSH 05/10/17 21:00 (NS Flush) 2 ml UNSCH PRN IV FLUSH 05/10/17 13:45 (Mylicon Chew) 80 mg QID PRN PO 05/10/17 13:45 05/11/17 15:28 (Motrin) 600 mg Q6H PRN PO 05/10/17 13:45 05/13/17 00:19 (Percocet 5-325 Mg) 1 tab Q4H PRN PO 05/10/17 13:45 05/13/17 06:06 (Percocet 5-325 Mg) 2 tab Q4H PRN PO 05/10/17 13:45 05/12/17 11:06 (Sonya-Colace) 2 tab Q12H PRN PO 05/10/17 13:45 05/13/17 00:18 (Ambien) 5 mg HS PRN PO 05/10/17 13:45 (Zofran Inj) 4 mg Q6H PRN IV PUSH 05/10/17 13:45 (Milk Of Magnesia Liq) 30 ml DAILY PO 05/12/17 10:45 05/13/17 08:54 Assessment/Plan Problem List: (1) Status post section Assessment and Plan 26y/o female who is postop day # 3 s/p repeat . - Continue routine care. Cytotec administered to control uterine bleeding overnight on 05/11 Repeat H/H 9.4/28.9 -Percocet and Motrin PRN pain. -Encouraged OOB. Advised pelvic rest for 6 wks. Will need follow-up appointment in 1 week for incision check. -Re: ctrl, she has had a tubal ligation this hospital stay - Discharge home today Miguel Bhakta MD R1 May 13, 2017 09:00
== END 2017-05-13 15:08 | disposition home or self-care (01) | DRG 766 ==
LOC: H2EB 09:45 → H1EA 14:51
PROVIDERS: ADMIT Obstetrics & Gynecology; ATTEND Obstetrics & Gynecology
PROC: 10D00Z1 Extraction of Products of Conception, Low, Open Approach (ICD-10-PCS; principal; 2017-05-10)
PROC: 0UB70ZZ Excision of Bilateral Fallopian Tubes, Open Approach (ICD-10-PCS; 2017-05-10)
DX: O34.219 Maternal care for unspecified type scar from previous cesarean delivery (principal); O99.214 Obesity complicating childbirth; E66.9 Obesity, unspecified; Z68.34 Body mass index [BMI] 34.0-34.9, adult; O99.333 Smoking (tobacco) complicating pregnancy, third trimester; F17.210 Nicotine dependence, cigarettes, uncomplicated; O99.52 Diseases of the respiratory system complicating childbirth; J45.909 Unspecified asthma, uncomplicated; O90.89 Other complications of the puerperium, not elsewhere classified; K59.00 Constipation, unspecified; O99.89 Other specified diseases and conditions complicating pregnancy, childbirth and the puerperium; O09.33 Supervision of pregnancy with insufficient antenatal care, third trimester; Z30.2 Encounter for sterilization; Z3A.39 39 weeks gestation of pregnancy; Z37.0 Single live birth
CPT/HCPCS: 59025; 81001; 85025; 86850; 86900; 86901; 87086; 88302; 90715; J0690; J2274; J2405; J2590; J7120